=== PATIENT | female | born 1990 | race Two or more races ===

== ENCOUNTER 2018-07-17 13:17 | Inpatient (IN) | payer OTHER ==
[~2018-07-17] VITALS: Ht 154.9 cm; Wt 72.1 kg
== END 2018-07-31 12:16 | disposition home or self-care (01) | DRG 807 ==
LOC: OB/GYN 07-28 13:45 → LDR 07-29 00:58 → SURG-SUITE 07-29 14:08
PROVIDERS: ADMIT Obstetrics & Gynecology
PROC: 10E0XZZ Delivery of Products of Conception, External Approach (ICD-10-PCS; principal; 2018-07-29)
PROC: 0UQGXZZ Repair Vagina, External Approach (ICD-10-PCS; 2018-07-29)
PROC: 3E033VJ Introduction of Other Hormone into Peripheral Vein, Percutaneous Approach (ICD-10-PCS; 2018-07-29)
PROC: 4A1HXCZ Monitoring of Products of Conception, Cardiac Rate, External Approach (ICD-10-PCS; 2018-07-29)
DX: O71.4 Obstetric high vaginal laceration alone (principal); Z37.0 Single live birth; Z3A.39 39 weeks gestation of pregnancy